=== PATIENT | female | born 1960 | race Caucasian/White ===

== ENCOUNTER → 2019-11-28 | Outpatient (CLI) | payer MEDICARE, MEDICAID ==
[~2019-11-28] MED LIST: DARI15TA4 PO; DARI7.5T8 PO; DCS100C PO; DIAZ-345 PO; ESCI20TA2 PO; FOLI1TAB24 PO; FOLI5VIA2 IJ; HYDR25CA92 GT; MELO-195 PO; MEMA10TA PO; OXCA150T3 PO; QUET200T PO; QUET300T PO; TPR25T PO; TRIH2TAB2 PO; VITAMIN D3
[2019-11-28 16:11] LABS: BILIRUBIN,TOTAL 0.4 MG/DL (0.1-1.0); CALCIUM 8.9 MG/DL (8.5-10.1); CREATININE SERUM 3.23 MG/DL (0.60-1.30); POTASSIUM 4.6 MMOL/L (3.6-5.0)
[2019-11-28 16:12] LABS: ALBUMIN 2.9 GM/DL (3.2-4.5); TOTAL PROTEIN 7.1 GM/DL (6.4-8.2)
[2019-11-28 17:07] LABS: WHITE BLOOD COUNT 5.2 10^3/uL (4.3-11.0)
[2019-11-28 17:08] LABS: HEMATOCRIT 21 % (35-52); HEMOGLOBIN 6.9 G/DL (11.5-16.0); MEAN CORPUSCULAR HEMOGLOBIN 34 PG (25-34); MEAN CORPUSCULAR HGB CONC 32 G/DL (32-36); MEAN CORPUSCULAR VOLUME 106 FL (80-99); MEAN PLATELET VOLUME 10.3 FL (7.4-10.4); PLATELET COUNT 35 10^3/uL (130-400); RED CELL DISTRIBUTION WIDTH 19.3 % (10.0-14.5)
[2019-11-28 17:09] LABS: BASOPHILS % (AUTO) 1 % (0-10); EOSINOPHILS # (AUTO) 0.1 10^3/uL (0.0-0.3); EOSINOPHILS % (AUTO) 1 % (0-10); LYMPHOCYTES # (AUTO) 1.1 X 10^3 (1.0-4.0); LYMPHOCYTES % (AUTO) 22 % (12-44); MONOCYTES # (AUTO) 0.3 X 10^3 (0.0-1.0); MONOCYTES % (AUTO) 6 % (0-12); NEUTROPHILS # (AUTO) 3.6 X 10^3 (1.8-7.8); NEUTROPHILS % (AUTO) 70 % (42-75); SMEAR SCAN COMMENT N
[2019-11-28 17:10] LABS: BAND NEUTROPHILS 4 %; BASOPHILS % (MANUAL) 1 %; EOSINOPHILS % (MANUAL) 1 %; ERYTHROCYTE SEDIMENTATION RATE 100 MM/HR (0-30); LYMPHOCYTES % (MANUAL) 13 %; MONOCYTES % (MANUAL) 5 %; NEUTROPHILS % (MANUAL) 76 %
[2019-11-28 22:45] LABS: PHOSPHORUS 3.4 MG/DL (2.3-4.7)
[2019-11-28 22:47] LABS: URIC ACID 7.3 MG/DL (2.6-7.2)
== END ==
LOC: LAB FS 15:08
PROVIDERS: ATTEND Internal Medicine Nephrology
DX: N39.0 Urinary tract infection, site not specified (principal); N17.9 Acute kidney failure, unspecified; N18.4 Chronic kidney disease, stage 4 (severe); D64.9 Anemia, unspecified; E87.2 Acidosis
CPT/HCPCS: 36415; 80053; 82306; 82728; 83540; 83970; 84100; 84550; 85007; 85027; 85652

== ENCOUNTER 2019-12-14 17:00 | Outpatient (RCR) | payer MEDICARE, MEDICAID | END 2020-03-11 | disposition home or self-care (01) | LOC: LAB FS 17:00 → EDSTATUS 12-15 06:45 | PROVIDERS: ATTEND Psychiatry & Neurology Neurology | DX: G40.909 Epilepsy, unspecified, not intractable, without status epilepticus (principal) | CPT/HCPCS: 36415; 80177 ==